=== PATIENT | male | born 1945 | race Caucasian/White ===

== ENCOUNTER 2019-10-29 19:46 | Inpatient (IN) | payer OTHER ==
[~2019-10-29] VITALS: Ht 177.8 cm; Wt 80.7 kg
[2019-10-29 20:16] VITALS: BP 173/93
[2019-10-29 21:10] LABS: ABSOLUTE NEUTROPHILS 5.3 thou/uL (1.4-8.2); BASOPHILS 1.1 % (0.0-2.0); EOSINOPHILS 4.7 % (0.0-3.0); HEMATOCRIT 42.2 % (42.0-52.0); HEMOGLOBIN 14.6 gm/dL (14.0-18.0); LYMPHOCYTES 25.3 % (24.0-44.0); MCH 30.7 pg (26.0-34.0); MCHC 34.6 g/dL (28.0-37.0); MONOCYTES 9.5 % (1.0-8.0); PLATELET COUNT 312 thou/uL (150-400); POLYS 59.4 % (36.0-66.0); RBC 4.74 mil/uL (4.50-6.00); RDW 13.9 % (10.5-14.5); WBC 8.9 thou/uL (4.0-11.0)
[2019-10-29 21:22] LABS: URINE BILIRUBIN NEGATIVE (Negative); URINE BLOOD NEGATIVE (Negative); URINE CLARITY CLEAR; URINE COLOR YELLOW; URINE GLUCOSE-RANDOM* 3+ (Negative); URINE KETONES NEGATIVE (Negative); URINE LEUKOCYTES-REFLEX NEGATIVE (Negative); URINE NITRITE-REFLEX NEGATIVE (Negative); URINE PROTEIN (DIPSTICK) NEGATIVE (Negative); URINE UROBILINOGEN 0.2 E.U./dl (0.2-1.0)
[2019-10-29 21:26] LABS: ANION GAP 8 mmol/L (7-16); BUN 19 mg/dL (7-18); CALCIUM 8.5 mg/dL (8.5-10.1); CHLORIDE 98 mmol/L (98-107); CO2 27 mmol/L (21-32); CREATININE 1.3 mg/dL (0.7-1.3); GLUCOSE 360 mg/dL (74-106); POTASSIUM 4.2 mmol/L (3.5-5.1); SODIUM 133 mmol/L (136-145)
[2019-10-29 21:27] LABS: MAGNESIUM 1.9 mg/dL (1.8-2.4); TROPONIN-I <0.06 ng/mL (<0.06)
[2019-10-29 22:46] VITALS: BP 180/106
[2019-10-29 22:48] VITALS: BP 147/64
[2019-10-29 23:55] LABS: CHOLESTEROL 277 mg/dL (<200); HDL CHOLESTEROL 23 mg/dL (>40); TRIGLYCERIDE 799 mg/dL (<150); VLDL 160 mg/dL (<40)
[2019-10-30] VITALS (11 sets, daily range): BP systolic 140–179; BP diastolic 78–99
[2019-10-30 00:01] LABS: SERUM ASSESSMENT Slight Lipemia
--- NOTE | 2019-10-30 08:13 | NUR ---
ASSUME CARE 0130. PT WHEELED UP FROM ED BY KAYLEE. APPEARS STABLE AND DENIES ANY PAIN. WEAKNESS NOTED WITH ACTIVITY. DENIES ANY PAIN. POOR TOLERANCE TO ACTIVITY. NO DISTRESS NOTED. FULL ROM OF EXTREMITIES. MODERATES SREGNTH WITH NO STROKE-LIKE SYMPTOMS. PROGRESSING MODERATELY WITH POC. PLAN IS TO CONSULT NEUROLOGY FOR FOLLOW UP. WILL FOLLOW WITH POC
[2019-10-30 08:18] LABS: CALCIUM 8.1 mg/dL (8.5-10.1); CREATININE 1.1 mg/dL (0.7-1.3); POTASSIUM 3.9 mmol/L (3.5-5.1)
--- NOTE | 2019-10-30 10:05 | NUR ---
PT ASSESSED, VSS, SITTING IN BED, POC DISCUSSED, HE VERBALIZED UNDERSTANDING, BUT IS NOT HAPPY ABOUT IT AND WANTS TO GO HOME. PT STATED HE "FALLS ALOT AT HOME." BUT HE PREFERS TO BE HOME THEN STAY IN THE HOSPITAL
--- NOTE | 2019-10-30 10:18 | NUR ---
SPOKE WITH PT'S DAUGHTER, MESFIN. UPDATED HER AND PT'S , SARITA, WITH PT'S POC, BOTH VERBALIZED UNDERSTANDING, PT IS "VERY RINCON" AND ONLY HEARS ABOUT EVERY OTHER WORD. HE REFUSES HEARING AIDS. FAMILY WANTS TO BE CALLED FOR UPDATES. [phone]
--- NOTE | 2019-10-30 11:00 | EKG ---
[facility] [place] [address] ELECTROCARDIOGRAM REPORT Name: ASHLEIGH CROW Room #: 205-P ADM IN M.R.#: [id number] Admission: 10/29/19 Attend Phys: Uriel Bhakta MD Discharge: Date of : 49 Report #: [id number] THIS REPORT FOR: cc: Luis Enrique Aponte James A. DO Park, Jin S. 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
[2019-10-30] MEDS ORDERED: METFORMIN HCL500 M3 PO (19:29)
[2019-10-30] MEDS ORDERED: MOTION SICKNESS25 MG PO (19:31)
[2019-10-30] MEDS ORDERED: NORVASC 2.5 MG2.5 M1 PO (19:33)
[2019-10-30] MEDS ORDERED: LOVASTATIN 20 M20 MG PO (19:33)
[2019-10-30] MEDS ORDERED: TOUJEO MAX300 UNIT/1 (19:35)
[2019-10-30] MEDS ORDERED: HUMALOG100 UNIT/1 SUBQ (19:35)
[2019-10-30] MEDS ORDERED: FLOMAX0.4 MG PO (19:48)
[2019-10-31] VITALS: BP 141/84
[2019-10-31 01:07] LABS: GLYCOHEMOGLOBIN (HGB A1C) 11.1 % (4.8-5.6)
[2019-10-31 04:00] VITALS: BP 145/90
[2019-10-31 04:12] LABS: HEMATOCRIT 40.2 % (42.0-52.0); HEMOGLOBIN 13.8 gm/dL (14.0-18.0); MCH 30.5 pg (26.0-34.0); MCHC 34.5 g/dL (28.0-37.0); MCV 88.4 fL (80.0-100.0); RBC 4.54 mil/uL (4.50-6.00); WBC 7.4 thou/uL (4.0-11.0)
[2019-10-31 04:22] LABS: CALCIUM 8.4 mg/dL (8.5-10.1); CREATININE 1.1 mg/dL (0.7-1.3); MAGNESIUM 1.9 mg/dL (1.8-2.4); POTASSIUM 3.6 mmol/L (3.5-5.1)
--- NOTE | 2019-10-31 04:42 | NUR ---
PT IS ALERT AND ORIENTED X4. LUNGS ARE CLEAR TO DIMINISHED. ON ROOM AIR. SINUS RHYTHM ON THE UPTWIST SPINNER. SLIGHT HEAD SORE ABOVE A LACERATION ON LEFT EYE BROW WHERE HE FELL AT HOME. NIH SCORE IS 0. PLEASANT THIS EVENING. WATCHING AT THIS TIME WITH NO COMPLAINTS. CALL LIGHT WITHIN REACH. IF NEEDS ASSISTANCE
[2019-10-31 07:30] VITALS: BP 148/101
[2019-10-31 08:00] VITALS: BP 148/101
--- NOTE | 2019-10-31 10:53 | NUR ---
AAOX4. TREATED FOR LEFT-SIDED HEADACHE. HTN NOTED; DR. REYNOLDS WANTS SBP AROUND 160MMHG. SR PER TELE. FALL PRECAUTIONS IN PLACE. WILL CONTINUE TO FOLLOW CLOSELY.
--- NOTE | 2019-10-31 15:13 | NUR ---
ADULT DTR MESFIN, , WISHES TO SPEAK WITH CM EARLY POSSIBLE, LOOKING FOR HIM TO TRANSFER TO [facility] IN REHAB.
[2019-10-31 15:45] VITALS: BP 137/87
[2019-10-31 19:51] VITALS: BP 110/77; BP 134/74
[2019-11-01 04:34] VITALS: BP 150/74
--- NOTE | 2019-11-01 04:46 | NUR ---
resting quietly tonight. using the urinal at the bedside. careplan reviwed. denies pain. no discharge concerns voiced.
[2019-11-01 07:55] VITALS: BP 135/78
--- NOTE | 2019-11-01 10:07 | NUR ---
AAOX4. SPEECH HERE FOR EVAL. SPOKE AGAIN WITH THE DTR. GAVE DR. SEALS HER NUMBER PER HER REQUEST. SR PER TELE. FALL PRECAUTIONS IN PLACE. WILL CONTINUE TO FOLLOW CLOSELY.
[2019-11-01 15:50] VITALS: BP 142/72
--- NOTE | 2019-11-01 19:37 | NUR ---
spoke with his dtr Stacey: she said she spoke with the doctor today and was under the impression that he will not be going to any rehab until his dizziness is under control. i noticed that he was laying in bed not really watching tv or looking at his ipad. with his brow knitted up. he denies pain. however, once asked if he is dizzy he confessed that indeed he is dizzy and is rubbing his eys and brow in discomfort. gave the prn meclazine and he is using his ipad at this time.
[2019-11-01 20:13] VITALS: BP 136/77; BP 16/77
--- NOTE | 2019-11-02 03:49 | NUR ---
dizziness while laying in bed at [facility]. meclizine some what effective according to the patient. he states that he has the dizziness most of the time. pts dtr Stacey called earlier in the shift, to check on patients status. she is concerned that he needs this dizziness issue resolved before discharge. patient continues to be very unbalanced when ambulating. He has the strenght to get up and out of bed, and uses walker,but needs two people and a gait belt to steady him. dtr is very concerned about his change in abilities in such a short amount of time. Stacey stated that he was walking 5 miles daily up until about a month ago.
[2019-11-02 04:02] VITALS: BP 130/79
[2019-11-02 08:15] VITALS: BP 141/82
--- NOTE | 2019-11-02 10:35 | 2DMMODE ---
[place] [address] 2 D/M-MODE ECHOCARDIOGRAM Name: ASHLEIGH CROW Adonay Room #: 205-P ADM IN M.R.#: [id number] Admission: 10/29/19 Attend Phys: Uriel Bhakta MD Discharge: Date of : 49 Report #: [id number] THIS REPORT FOR: cc: Luis Enrique Aponte James A. DO Park, Jin S. MD ~ APPROVED REPORT Study performed: 11/02/2019 09:09:39 EXAM: Comprehensive 2D, Doppler, and color-flow Echocardiogram Patient Location: Bedside Room #: 205 Status: routine BSA: 1.99 HR: 87 bpm BP: 130/79 mmHg Rhythm: NSR Other Information Study Quality: Adequate/foreshortened apicals Indications Dizziness. Hx: HTN, DM. 2D Dimensions RVDd: 24.42 mm IVSd: 14.28 (7-11mm) LVOT Diam: 21.51 (18-24mm) LVDd: 40.38 mm PWd: 10.32 (7-11mm) Ascending Ao: 31.28 (22-36mm) LVDs: 28.96 (25-40mm) Aortic Root: 40.44 mm Volumes Left Atrial Volume (Systole) Single Plane 4CH: 34.11 mL Single Plane 2CH: 30.33 mL LA ESV Index: 18.00 mL/m2 Aortic Valve AoV Peak Jayson.: 1.07 m/s AO Peak Gr.: 4.56 mmHg LVOT Max P.82 mmHg LVOT Max V: 0.84 m/s [email or web address] [address] 2 D/M-MODE ECHOCARDIOGRAM Name: ASHLEIGH CROW Room #: 205-P [facility] IN [facility]#: [id number] Admission: 10/29/19 Attend Phys: Uriel Bhakta MD Discharge: Date of : 49 Report #: [id number] SAMUEL Vmax: 2.86 cm2 Mitral Valve E/A Ratio: 0.7 MV Decel. Time: 192.59 ms MV E Max Jayson.: 0.44 m/s MV A Jayson.: 0.62 m/s MV PHT: 55.85 ms IVRT: 76.12 ms Pulmonary Valve PV Peak Jayson.: 0.96 m/s PV Peak Gr.: 3.72 mmHg Pulmonary Vein P Vein S: 0.40 m/s P Vein D: 0.25 m/s P Vein S/D Ratio: 1.60 Left Ventricle The left ventricle is normal size. There is normal LV segmental wall motion. Mild basal septal hypertrophy is present. Left ventricular systolic function is normal. LVEF is 60-65%. Mild diastolic dysfunction is present (impaired relaxation pattern). Right Ventricle The right ventricle is normal size. The right ventricular systolic function is normal. Atria The left atrium size is normal. The right atrium size is normal. Aortic Valve The aortic valve is normal in structure. No aortic regurgitation is present. There is no aortic valvular stenosis. Mitral Valve The mitral valve is normal in structure. Trace mitral regurgitation. No evidence of mitral valve stenosis. Tricuspid Valve The tricuspid valve is normal in structure. There is no tricuspid valve regurgitation noted. Unable to assess PA pressure. Pulmonic Valve The pulmonary valve is normal in structure. Trace pulmonic [place] [address] 2 D/M-MODE ECHOCARDIOGRAM Name: TRISTINASHLEIGH J Room #: 205-P [facility] IN ..#: [id number] Admission: 10/29/19 Attend Phys: Uriel Bhakta MD Discharge: Date of : 49 Report #: [id number] regurgitation. Great Vessels Aortic root is mildly dilated at 4.0cm. The ascending aorta is normal in size. IVC is normal in size and collapses >50% with inspiration. Pericardium There is no pericardial effusion. <Conclusion> The left ventricle is normal size. Left ventricular systolic function is normal. Mild diastolic dysfunction is present (impaired relaxation pattern). The right ventricle is normal size. The left atrium size is normal. The aortic valve is normal in structure. Trace mitral regurgitation. There is no tricuspid valve regurgitation noted. <ELECTRONICALLY SIGNED> By: Mir Kramer MD 11/02/193 32 32 Mir Kramer MD /INF
--- NOTE | 2019-11-02 14:42 | NUR ---
Attempted to call patient in room no answer. Dtr called unit and was then transferred to . Dtr reports patient is very SOLOMON and lives with . She reports its her understanding that patient was to transfer to rehab unit today and they are NOT in agreement with that plan. SHe reports she has told staff at [facility] that they may not want patient to go to [facility] rehab unit and possibly [facility] or plan to research another rehab unit. 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 Discussed with dtr plan to discuss with patient and family transfer to [facility]. Dtr wants Ray taylor and Dr Melchor to sp with her directly. Updated [facility]N claudia and phys.
[2019-11-02 16:34] VITALS: BP 145/73
--- NOTE | 2019-11-02 17:45 | NUR ---
Assumed care approx 0700. Assessments as charted and VSS. Pt alert and oriented x4. Pt c/o dizziness today off and on. MRI T-spine consent signed, faxed, and placed in chart. BS stable this shift. Pt denies pain this shift. Remains on room air. SR on tele monitor. Will continue to monitor. .
[2019-11-02 20:29] VITALS: BP 144/65
[2019-11-03] VITALS: BP 149/68
[2019-11-03 05:13] VITALS: BP 136/72
[2019-11-03 07:50] VITALS: BP 136/76
[2019-11-03 10:50] VITALS: BP 148/79
[2019-11-03] MEDS ORDERED: ASPIR 8181 MG PO (13:07)
[2019-11-03] MEDS ORDERED: MECLIZINE HCL25 MG PO (13:07)
[2019-11-03] MEDS ORDERED: LANTUS SUBQ (13:07)
[2019-11-03] MEDS ORDERED: CLOPIDOGREL75 MG PO (13:07)
[2019-11-03] MEDS ORDERED: LIPITOR10 MG PO (13:07)
[2019-11-03] MEDS ORDERED: ENOXAPARIN40 MG/0.1 SUBQ (13:07)
[2019-11-03] MEDS ORDERED: ACETAMINOPHEN325 M1 PO (13:07)
[2019-11-03] MEDS ORDERED: HUMALOG100 UNIT/1 SUBQ (13:07)
[2019-11-03] MEDS ORDERED: MIRALAX17 GM PO (13:07)
--- NOTE | 2019-11-03 13:53 | NUR ---
PT DISCHARGING TODAY TO [facility] FAXED DC ORDERS/SUMMARY TO FACILITY RECEIVED CONFIRMATION. TRANSPORT ARRANGED BY ADDY FOR 1400 TODAY PT'S NOTIFIED OF TIME OF TRANSPORT. UNIT NOTIFIED AND CHART COPY PER US. RN TO CALL REPORT TO [phone].
--- NOTE | 2019-11-03 14:16 | NUR ---
Sp with dtr her prefernce [facility]. [facility] accepting and rec auth. Orders faxed. [facility] arranged transport at 1400 today. Notfied patient and dtr. Dtr wants phone call when patient leaves as she is going to meet patient at [facility] to waive from transport. Sp with patient he is in agreement with plan. no further needs.
--- NOTE | 2019-11-03 14:36 | NUR ---
ASSUMMED PT CARE AT [facility] 0700. PT A&O X4. FORGETFUL AT TIMES. ASSESSMENT CHARTED. FALL PRECAUTIONS IN PLACE. PT DENIES HAVING CHEST PAIN. PT DENIES HAVING SOB. PT DENIES HAVING ACUTE PAIN. PT DISHCHARGING TO [facility] FACILITY. REPORT GIVEN TO YENIFER AT [facility]. YENIFER STATED UNDERSTANDING AND DENIED HAVING FURTHER QUESTIONS. CHART COPY AND OTHER INFO SENT C PT. MEDICAL TRANSPORT PICKED UP PT. BELONGINGS SENT C PT. IV DC. TELE DC. EDUCATED POC C PT AND PT'S DAUGHTER. BOTH STATED UNDERSTANDING. PT COMFORTABLE. PT DENIES HAVING FURTHER CONCERNS. VITAL SIGNS STABLE. BLOOD SUGARS STABLE.
--- NOTE | 2019-11-05 17:09 | HC ---
[facility] [place] [address] CONSULTATION Name: ASHLEIGH CROW Room #: 205-P [facility] IN .R.#: [id number] Admission: 10/29/19 Attend Phys: Uriel Bhakta MD Discharge: 11/03/19 Date of : 49 Report #: [id number] THIS REPORT FOR: cc: Luis Enrique Aponte James A. DO Smithson, David G. MD ~ CC: Luis Enrique Bhakta DATE OF SERVICE: 11/01/2019 HISTORY OF PRESENT ILLNESS: The patient is a 74-year-old white male who was admitted with left-sided weakness involving the left lower extremity, upper extremity and increased falls over the last couple of weeks. He has had some complaints of dizziness, but notes when he is up he will fall to the left and his left leg will give out. Lost all feeling of the left leg couple of days prior to admission. CT of the head was negative, but MRI revealed a left medial cerebellar and inferior cerebellar infarction, distribution of the anterior inferior cerebellar artery. The patient has been seen by Neurology, placed on Plavix. Also given ENRRIQUE hose for question of orthostatic component. We are seeing him in rehabilitation medicine consultation. PAST MEDICAL HISTORY: Includes hypertension, diabetes mellitus, BPH. ALLERGIES: No known drug allergies. SOCIAL HISTORY: Lives in a house with his , has only utilized a walker since having problems with falls the last couple of weeks. There are 6+6 steps in. He premorbidly had been independent, ambulatory without gait aids. REVIEW OF SYSTEMS: No current complaints of chest pain, shortness of breath or abdominal discomfort. PHYSICAL EXAMINATION: GENERAL: Pleasant 74-year-old white male in no obvious distress. VITAL SIGNS: Last recorded temperature 98.1, pulse 80, respirations 18, blood pressure 150/74. NEUROLOGIC: The patient is alert. EOMs appeared to be full. No obvious nystagmus. Facies were symmetric. He does have decreased coordination of that left upper extremity with [id number] and fine finger dexterity and there is some clumsiness. He has decreased coordination in left lower extremity as well with definite decreased [id number]-nz-[id number]. Strength is probably a grade 4-/5, right upper and right lower extremity revealed strength at probably a grade 4+/5 and normal [id number]-ho-javt and xjuz-rc-xlun. Functionally, he has been mod assist sit to stand. Gait was mod assist 30 feet with ataxia on 10/30/2019. [address] [address] CONSULTATION Name: ASHLEIGH CROW Room #: [facility].#: [id number] Admission: 10/29/19 Attend Phys: Uriel Bhakta MD Discharge: 11/03/19 Date of : 49 Report #: [id number] ASSESSMENT: A 74-year-old white male with the following problem list: 1. 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 2. Left-sided weakness. 3. Ataxia with dysmetria and gait instability. 4. Frequent falls with falling to the left. 5. Essential hypertension. 6. Orthostatic hypotension being correlated clinically IV fluids and ENRRIQUE hose. 7. Diabetes mellitus type 2. PLAN: The patient is a good candidate, very motivated and would benefit from an acute in-hospital inpatient rehabilitation. He has significant gait ataxia, decreased coordination with the left upper and lower extremity dysmetria. Would agree that he would benefit from an acute in-hospital inpatient rehabilitation stay. Insurance precertification issues to be obtained. We will be glad to follow along with you. <ELECTRONICALLY SIGNED> By: Marco Melchor MD 11/05/19 1709 1142 [id number] Marco Melchor MD /[facility]
== END 2019-11-03 14:21 | DRG 66 ==
LOC: ER 19:46 → 2N 22:33 → EROBS 22:33 → EDBD 22:33 → 2N 10-30 00:55
PROVIDERS: Emergency Medicine; Internal Medicine; Nurse Practitioner Family; ADMIT Hospitalist
DX: I63.532 Cerebral infarction due to unspecified occlusion or stenosis of left posterior cerebral artery (principal); H81.90 Unspecified disorder of vestibular function, unspecified ear; I95.1 Orthostatic hypotension; I10 Essential (primary) hypertension; E11.9 Type 2 diabetes mellitus without complications; N40.0 Benign prostatic hyperplasia without lower urinary tract symptoms; G54.2 Cervical root disorders, not elsewhere classified; Z90.49 Acquired absence of other specified parts of digestive tract; Z91.81 History of falling; Z99.3 Dependence on wheelchair; Z79.82 Long term (current) use of aspirin; Z79.899 Other long term (current) drug therapy; Z79.84 Long term (current) use of oral hypoglycemic drugs
CPT/HCPCS: 10081